=== PATIENT | female | born 1980 | race Caucasian/White ===

== ENCOUNTER 2023-09-29 15:22 | Outpatient (CLI) | payer MEDICAID, SELFPAY ==
[2023-09-29 16:01] LABS: Basophils Absolute Auto 0.1 K/mm3 (0.0-0.1); Basophils Percent Auto 0.9 % (0.2-1.2); Eosinophils Absolute Auto 0.3 K/mm3 (0-0.3); Eosinophils Percent Auto 3.3 % (0-4.4); Hematocrit 32.8 % (37.0-47.0); Immature Granulocyte Absolute 0.01 K/mm3 (0.00-0.031); Immature Granulocyte Percent A 0.1 % (0-0.5); Immature Platelet Fraction Pct 6.7 % (0.9-11.2); Lymphocytes Absolute Auto 2.52 K/mm3 (0.9-3.2); Lymphocytes Percent Auto 25.2 % (18.3-44.2); Mean Corpuscular HGB Conc 27.4 g/dl (32-36); Mean Corpuscular Hemoglobin 17.2 pg (26-34); Mean Corpuscular Volume 62.6 fl (80-100); Mean Platelet Volume 9.3 fl (7.4-10.4); Monocytes Absolute Auto 0.6 K/mm3 (0.1-0.6); Monocytes Percent Auto 5.7 % (2.6-8.5); Neutrophils Absolute Auto 6.5 K/mm3 (1.3-6.7); Neutrophils Percent Auto 64.8 % (45.5-73.1); Platelet Count Result 410 k/mm3 (150-375); Red Blood Count 5.24 M/mm3 (4.2-5.4); Red Cell Distribution Width 25.2 % (11.5-14.5)
[2023-09-29 16:02] LABS: Platelet Estimate Increased (Adequate); Schistocytes None Seen (NORMAL)
[2023-09-29 16:03] LABS: Anisocytosis 1+ (NORMAL); Hypochromasia 1+ (NORMAL); Microcytosis 1+ (NORMAL); Ovalocytes 1+ (NORMAL); Poikilocytosis 1+ (NORMAL)
[2023-09-29 16:54] LABS: Iron 22 ug/dL (37-170)
[2023-09-29 17:03] LABS: Alanine Aminotransferase 16 U/L (6-35); Albumin Level 4.2 g/dL (3.5-5.1); Alkaline Phosphatase 155 U/L (38-126); Anion Gap 9 mmol/L (8-16); Aspartate Amino Transferase 20 U/L (14-36); Bilirubin,Total 0.6 mg/dL (0.2-1.3); Blood Urea Nitrogen 18 mg/dL (7-17); Calcium 9.6 mg/dL (8.4-10.2); Carbon Dioxide 25 mmol/L (22-30); Chloride 108 mmol/L (98-107); Estimated Glomerular Filt Rate > 60; Glucose 138 mg/dL (65-110); Lactate Dehydrogenase 170 U/L (120-246); Potassium 3.7 mmol/L (3.4-5.0); Sodium 142 mmol/L (137-145)
[2023-09-29 17:05] LABS: Percent Iron Saturation 5 % (20-50)
[2023-09-29 17:08] LABS: D Dimer 0.39 ug/mL (<0.48)
[2023-09-29 17:30] LABS: Ferritin 6.18 ng/mL (6.24-137)
[2023-09-29 20:40] LABS: Folic Acid 3.2 ng/mL (2.76->20)
[2023-10-01 23:46] LABS: Methylmalonic Acid 268 nmol/L (87-318)
[2023-10-06 12:16] LABS: Soluble Transferrin Receptor 7.88 mg/L (0.76-1.76)
== END 2023-09-29 15:23 | disposition home or self-care (01) ==
LOC: ANHLAB 15:25
PROVIDERS: Visit Provider Internal Medicine Hematology & Oncology
DX: D63.8 Anemia in other chronic diseases classified elsewhere (principal); Z86.711 Personal history of pulmonary embolism; N39.0 Urinary tract infection, site not specified; R31.9 Hematuria, unspecified
CPT/HCPCS: 36415; 80053; 82607; 82728; 82746; 83540; 83550; 83615; 83921; 84238; 85025; 85055; 85380; 87077; 87086; 87186

== ENCOUNTER 2023-11-08 09:35 | Outpatient (CLI) | payer OTHER, SELFPAY ==
--- NOTE | ~2023-11-08 | US_ITS ---
EXAMINATION: US axilla RT DATE: 11/08/2023 10:30 INDICATION: Enlarged right axillary lymph nodes TECHNIQUE: Multiple grayscale and Doppler ultrasound images of the region of concern at the right axi lla were obtained. COMPARISON: None FINDINGS: No lymph nodes or other abnormal masses or fluid collections identified at the region of concern. The re is a 7 mm defect in the linear hyperechoic fascial plane within the subcutaneous fat at the region of concern. A tiny perforating vessels seen extending through this region on color Doppler. Vascular flow is also seen on color Doppler within the deeper right axillary artery and vein. IMPRESSION: 1. No enlarged lymph nodes or other abnormal masses or fluid collections identified at the region of concern. Reviewed, dictated and finalized at location A. [employer] OPERATOR IMPRESSION: 1. No enlarged lymph nodes or other abnormal masses or fluid collections identi fied at the region of concern.
== END 2023-11-08 09:36 | disposition home or self-care (01) ==
PROVIDERS: PCP Internal Medicine; Visit Provider Internal Medicine Hematology & Oncology
DX: R59.0 Localized enlarged lymph nodes (principal)
CPT/HCPCS: 76882